=== PATIENT | female | born 1960 | race Caucasian/White ===

== ENCOUNTER 2022-02-04 06:50 | Inpatient (IN) | payer OTHER ==
[~2022-02-04] VITALS: Ht 160 cm; Wt 61.2 kg
[2022-02-04] MEDS ORDERED: SODIUM CHLORIDE 0.9% 1000ML 1,000 ML IV STA ×2 (07:09→08:13)
[2022-02-04] MEDS ORDERED: ONDANSETRON HCL INJ 2MG/ML 2ML 2 MG/ML VIAL IV STA (07:09)
[2022-02-04 07:34] LABS: BASOPHILS # (AUTO) 0.1 (0.0-0.1); BASOPHILS % 0.3 % (0.0-1.0); EOSINOPHILS % 0.1 % (0.0-6.0); HEMATOCRIT 39.3 % (34.2-44.1); LYMPHOCYTES # (AUTO) 1.5 (1.0-3.2); LYMPHOCYTES % 6.8 % (18.0-39.1); MEAN CORPUSCULAR HEMOGLOBIN 28.3 pg (28-32); MEAN CORPUSCULAR HGB CONC 33.1 g/dL (31-35); MEAN CORPUSCULAR VOLUME 85.6 fL (81-99); MONOCYTES # (AUTO) 0.4 (0.2-0.8); MONOCYTES % 1.9 % (4.4-11.3); NEUTROPHILS # (AUTO) 19.7 (2.1-6.9); NEUTROPHILS % 89.7 % (38.7-80.0); PLATELET COUNT 66 x10e3/uL (140-360); RED BLOOD COUNT 4.59 x10e6/uL (3.6-5.1); RED CELL DISTRIBUTION WIDTH 13.6 % (11.7-14.4)
[2022-02-04 07:43] LABS: INR 1.05; PROTHROMBIN TIME 14.7 seconds (11.9-14.5)
[2022-02-04 07:44] LABS: PARTIAL THROMBOPLASTIN TIME 31.4 seconds (23.8-35.5)
[2022-02-04 07:48] LABS: CLARITY,URINE TURBID (CLEAR); COLOR,URINE YELLOW (YELLOW); LEUKOCYTE ESTERASE ,URINE TRACE (NEGATIVE)
[2022-02-04 07:48] LABS: ALBUMIN 2.9 g/dL (3.5-5.0); ALBUMIN/GLOBULIN RATIO 0.8 (0.8-2.0); ANION GAP 20.1 mmol/L (8-16); CALCIUM 8.7 mg/dL (8.4-10.2); CREATININE, SERUM 1.51 mg/dL (0.57-1.11); MAGNESIUM 2.4 MG/DL (1.3-2.1); POTASSIUM 5.1 mmol/L (3.5-5.1)
[2022-02-04 07:49] LABS: BACTERIA,URINE MODERATE /HPF; EPITHELIAL CELLS,URINE MODERATE /LPF; KETONES,URINE TRACE (NEGATIVE); NITRITE,URINE NEGATIVE (NEGATIVE); PROTEIN,URINE DIPSTICK 1+ (NEGATIVE); RBC,URINE 21-50 /HPF (0-5); URINE UROBILINOGEN 1 mg/dL (0.2 - 1); WBC,URINE (MAN) 21-50 /HPF (0-5)
[2022-02-04 07:51] LABS: AMPHETAMINES SCREEN,URINE POSITIVE (NEGATIVE); BENZODIAZEPINES SCREEN,URINE NEGATIVE (NEGATIVE); PHENCYCLIDINE SCREEN,URINE NEGATIVE (NEGATIVE)
[2022-02-04 07:54] LABS: CREATINE KINASE MB 2.8 ng/mL (0-5.0)
[2022-02-04 08:07] LABS: SALICYLATE < 5.0 mg/dL (0-30)
[2022-02-04 10:34] LABS: LYMPHOCYTES % (MANUAL) 4 % (19-48); MONOCYTES % (MANUAL) 5 % (3.4-9.0); NEUTROPHILS % (MANUAL) 91 % (40-74); PLATELET ESTIMATE MODERATELY DECREASED; PLATELET MORPHOLOGY COMMENT NORMAL
[2022-02-04 10:35] LABS: RBC MORPHOLOGY COMMENT NORMAL
[2022-02-04] MEDS ORDERED: ONDANSETRON HCL INJ 2MG/ML 2ML 2 MG/ML VIAL IV PRN (10:45)
[2022-02-04] MEDS: SODIUM CHLORIDE 0.9% 1000ML 1,000 ML IV SCH ×2 (11:15→18:45)
[2022-02-04] MEDS ORDERED: ACETAMINOPHEN 1000 MG/100 ML IV ONE (14:54)
[2022-02-04 14:55] LABS: CREATINE KINASE MB 2.5 ng/mL (0-5.0)
[2022-02-04] MEDS ORDERED: Vancomycin IV 1 GM in SODIUM CHLORIDE 0.9% 250ML 250 ML IV ONE (15:00)
[2022-02-04] MEDS ORDERED: SODIUM CHLORIDE 0.9% 1000ML 1,000 ML ONE (16:25)
[2022-02-04] MEDS: NOREPINEPHRINE 8 MG/D5W 250 ML 250 ML IV SCH (16:30)
[2022-02-04 18:14] LABS: BASOPHILS # (AUTO) 0.1 (0.0-0.1); BASOPHILS % 0.3 % (0.0-1.0); EOSINOPHILS % 0.2 % (0.0-6.0); HEMATOCRIT 32.6 % (34.2-44.1); HEMOGLOBIN 10.6 g/dL (12.0-16.0); LYMPHOCYTES # (AUTO) 1.2 (1.0-3.2); LYMPHOCYTES % 6.3 % (18.0-39.1); MEAN CORPUSCULAR HEMOGLOBIN 28.5 pg (28-32); MEAN CORPUSCULAR HGB CONC 32.5 g/dL (31-35); MEAN CORPUSCULAR VOLUME 87.6 fL (81-99); MONOCYTES # (AUTO) 0.3 (0.2-0.8); MONOCYTES % 1.5 % (4.4-11.3); NEUTROPHILS # (AUTO) 17.2 (2.1-6.9); NEUTROPHILS % 90.7 % (38.7-80.0); PLATELET COUNT 78 x10e3/uL (140-360); RED BLOOD COUNT 3.72 x10e6/uL (3.6-5.1); RED CELL DISTRIBUTION WIDTH 13.7 % (11.7-14.4)
[2022-02-04 18:35] LABS: ALBUMIN 2.3 g/dL (3.5-5.0); ALBUMIN/GLOBULIN RATIO 0.9 (0.8-2.0); CALCIUM 7.3 mg/dL (8.4-10.2); CREATININE, SERUM 1.06 mg/dL (0.57-1.11)
[2022-02-04 18:51] LABS: CREATINE KINASE MB 2.1 ng/mL (0-5.0)
[2022-02-04] MEDS ORDERED: POTASSIUM CHLORIDE 20MEQ/100ML 200 ML IV ONE (19:30)
[2022-02-04] MEDS ORDERED: POTASSIUM CHLORIDE 20MEQ/100ML 200 ML ONE (19:42)
[2022-02-04 21:41] VITALS: BP 127/94
[2022-02-04 21:45] VITALS: BP 131/76
[2022-02-04 22:00] VITALS: BP 129/86
[2022-02-04 22:30] VITALS: BP 127/76
[2022-02-04 23:00] VITALS: BP 123/84
[2022-02-04 23:15] VITALS: BP 119/80
[2022-02-05] VITALS (69 sets, daily range): BP systolic 82–162; BP diastolic 52–141
[2022-02-05] MEDS: LORAZEPAM INJ 2 MG/ML VIAL IV PRN ×2 (00:52→05:50)
[2022-02-05 00:55] LABS: CREATINE KINASE MB 4.5 ng/mL (0-5.0)
[2022-02-05] MEDS: SODIUM CHLORIDE 0.9% 1000ML 1,000 ML IV SCH ×2 (02:45→08:36)
[2022-02-05 06:45] LABS: BASOPHILS # (AUTO) 0.1 (0.0-0.1); BASOPHILS % 0.4 % (0.0-1.0); EOSINOPHILS % 0.2 % (0.0-6.0); HEMATOCRIT 31.3 % (34.2-44.1); HEMOGLOBIN 10.9 g/dL (12.0-16.0); LYMPHOCYTES # (AUTO) 0.8 (1.0-3.2); LYMPHOCYTES % 6.7 % (18.0-39.1); MEAN CORPUSCULAR HEMOGLOBIN 28.6 pg (28-32); MEAN CORPUSCULAR HGB CONC 34.8 g/dL (31-35); MEAN CORPUSCULAR VOLUME 82.2 fL (81-99); MONOCYTES # (AUTO) 0.2 (0.2-0.8); MONOCYTES % 1.6 % (4.4-11.3); NEUTROPHILS % 90.2 % (38.7-80.0); PLATELET COUNT 68 x10e3/uL (140-360); RED BLOOD COUNT 3.81 x10e6/uL (3.6-5.1); RED CELL DISTRIBUTION WIDTH 14.3 % (11.7-14.4)
[2022-02-05 07:19] LABS: ALBUMIN 2.2 g/dL (3.5-5.0); ALBUMIN/GLOBULIN RATIO 0.8 (0.8-2.0); ANION GAP 12.3 mmol/L (8-16); CALCIUM 7.4 mg/dL (8.4-10.2); CREATININE, SERUM 0.81 mg/dL (0.57-1.11); POTASSIUM 3.3 mmol/L (3.5-5.1)
[2022-02-05 09:07] LABS: BAND NEUTROPHILS % (MANUAL) 1 %; LYMPHOCYTES % (MANUAL) 2 % (19-48); NEUTROPHILS % (MANUAL) 97 % (40-74)
[2022-02-05 09:08] LABS: PLATELET ESTIMATE MODERATELY DECREASED; PLATELET MORPHOLOGY COMMENT NORMAL; RBC MORPHOLOGY COMMENT NORMAL
[2022-02-05] MEDS ORDERED: SODIUM BICARBONATE 8.4% 50 ML in SODIUM CHLORIDE 0.45% 1,000 ML IV ONE (09:45)
[2022-02-05] MEDS: POTASSIUM CHLORIDE 20MEQ/100ML 100 ML IV SCH ×2 (10:59→13:01)
[2022-02-05] MEDS ORDERED: SODIUM CHLORIDE 0.45% 1,000 ML ONE (11:11)
[2022-02-05] MEDS: NOREPINEPHRINE 8 MG/D5W 250 ML 250 ML IV SCH (16:30)
[2022-02-06] VITALS (26 sets, daily range): BP systolic 85–103; BP diastolic 55–69
[2022-02-06] MEDS ORDERED: SODIUM BICARBONATE 8.4% SYRING 50 ML ONE (02:00)
[2022-02-06 06:57] LABS: BASOPHILS % 0.3 % (0.0-1.0); HEMATOCRIT 30.3 % (34.2-44.1); HEMOGLOBIN 9.7 g/dL (12.0-16.0); LYMPHOCYTES # (AUTO) 2.4 (1.0-3.2); MEAN CORPUSCULAR VOLUME 87.6 fL (81-99); MONOCYTES # (AUTO) 0.3 (0.2-0.8); MONOCYTES % 2.9 % (4.4-11.3); NEUTROPHILS % 68.9 % (38.7-80.0); PLATELET COUNT 85 x10e3/uL (140-360); RED BLOOD COUNT 3.46 x10e6/uL (3.6-5.1); RED CELL DISTRIBUTION WIDTH 14.7 % (11.7-14.4)
[2022-02-06 07:20] LABS: ALBUMIN/GLOBULIN RATIO 0.8 (0.8-2.0); ANION GAP 10.3 mmol/L (8-16); CALCIUM 7.7 mg/dL (8.4-10.2); CREATININE, SERUM 0.76 mg/dL (0.57-1.11); POTASSIUM 3.3 mmol/L (3.5-5.1)
[2022-02-06] MEDS: POTASSIUM CHLORIDE 20MEQ/100ML 100 ML IV SCH ×2 (08:17→10:55)
[2022-02-06 08:20] LABS: LYMPHOCYTES % (MANUAL) 10 % (19-48); MONOCYTES % (MANUAL) 3 % (3.4-9.0); NEUTROPHILS % (MANUAL) 86 % (40-74)
[2022-02-06 08:21] LABS: PLATELET ESTIMATE MODERATELY DECREASED; PLATELET MORPHOLOGY COMMENT NORMAL; RBC MORPHOLOGY COMMENT NORMAL
[2022-02-06] MEDS ORDERED: SODIUM CHLORIDE 0.9% 250ML 250 ML ONE (08:53)
[2022-02-06] MEDS: MEROPENEM 1 GM in SODIUM CHLORIDE 0.9% 100 ML IV SCH ×2 (13:57→21:20)
[2022-02-06] MEDS: NOREPINEPHRINE 8 MG/D5W 250 ML 250 ML IV SCH (16:30)
[2022-02-07] VITALS (21 sets, daily range): BP systolic 86–115; BP diastolic 55–81
[2022-02-07] MEDS: ACETAMINOPHEN 325 MG TAB PO PRN ×2 (04:01→16:58)
[2022-02-07] MEDS: MEROPENEM 1 GM in SODIUM CHLORIDE 0.9% 100 ML IV SCH ×3 (05:43→22:55)
[2022-02-07 06:49] LABS: BASOPHILS # (AUTO) 0.1 (0.0-0.1); BASOPHILS % 0.5 % (0.0-1.0); EOSINOPHILS # (AUTO) 0.1 (0.0-0.4); EOSINOPHILS % 0.8 % (0.0-6.0); HEMATOCRIT 29.4 % (34.2-44.1); HEMOGLOBIN 9.4 g/dL (12.0-16.0); LYMPHOCYTES # (AUTO) 3.2 (1.0-3.2); LYMPHOCYTES % 32.9 % (18.0-39.1); MEAN CORPUSCULAR HEMOGLOBIN 28.2 pg (28-32); MEAN CORPUSCULAR VOLUME 88.3 fL (81-99); MONOCYTES # (AUTO) 0.3 (0.2-0.8); MONOCYTES % 3.4 % (4.4-11.3); NEUTROPHILS % 61.5 % (38.7-80.0); RED BLOOD COUNT 3.33 x10e6/uL (3.6-5.1); RED CELL DISTRIBUTION WIDTH 14.6 % (11.7-14.4)
[2022-02-07 06:55] LABS: PLATELET COUNT 107 x10e3/uL (140-360)
[2022-02-07 07:00] LABS: ALBUMIN 1.9 g/dL (3.5-5.0); ALBUMIN/GLOBULIN RATIO 0.7 (0.8-2.0); ANION GAP 11.3 mmol/L (8-16); CALCIUM 7.8 mg/dL (8.4-10.2); CREATININE, SERUM 0.67 mg/dL (0.57-1.11); POTASSIUM 3.3 mmol/L (3.5-5.1)
[2022-02-07 08:49] LABS: EOSINOPHILS % (MANUAL) 1 % (0-7); LYMPHOCYTES % (MANUAL) 19 % (19-48); MONOCYTES % (MANUAL) 6 % (3.4-9.0); NEUTROPHILS % (MANUAL) 72 % (40-74); PLATELET ESTIMATE SLIGHTLY DECREASED; PLATELET MORPHOLOGY COMMENT NORMAL; RBC MORPHOLOGY COMMENT NORMAL
[2022-02-07] MEDS: POTASSIUM CHLORIDE 20MEQ/100ML 100 ML IV SCH ×2 (09:01→10:58)
[2022-02-07] MEDS: NOREPINEPHRINE 8 MG/D5W 250 ML 250 ML IV SCH (16:30)
[2022-02-07] MEDS ORDERED: SODIUM CHLORIDE 0.9% 250ML 250 ML ONE (22:46)
[2022-02-08] VITALS (7 sets, daily range): BP systolic 103–126; BP diastolic 64–79
[2022-02-08] MEDS: MEROPENEM 1 GM in SODIUM CHLORIDE 0.9% 100 ML IV SCH ×3 (05:40→23:46)
[2022-02-08 07:30] LABS: BASOPHILS % 0.4 % (0.0-1.0); EOSINOPHILS # (AUTO) 0.1 (0.0-0.4); EOSINOPHILS % 1.1 % (0.0-6.0); HEMATOCRIT 29.3 % (34.2-44.1); HEMOGLOBIN 9.1 g/dL (12.0-16.0); LYMPHOCYTES # (AUTO) 2.9 (1.0-3.2); LYMPHOCYTES % 41.2 % (18.0-39.1); MEAN CORPUSCULAR HEMOGLOBIN 27.6 pg (28-32); MEAN CORPUSCULAR HGB CONC 31.1 g/dL (31-35); MEAN CORPUSCULAR VOLUME 88.8 fL (81-99); MONOCYTES # (AUTO) 0.3 (0.2-0.8); NEUTROPHILS # (AUTO) 3.7 (2.1-6.9); NEUTROPHILS % 52.6 % (38.7-80.0); PLATELET COUNT 141 x10e3/uL (140-360); RED CELL DISTRIBUTION WIDTH 14.7 % (11.7-14.4)
[2022-02-08 07:51] LABS: ALBUMIN 1.9 g/dL (3.5-5.0); ALBUMIN/GLOBULIN RATIO 0.7 (0.8-2.0); ANION GAP 11.8 mmol/L (8-16); CALCIUM 7.8 mg/dL (8.4-10.2); CREATININE, SERUM 0.6 mg/dL (0.57-1.11); POTASSIUM 3.8 mmol/L (3.5-5.1)
[2022-02-08] MEDS: NOREPINEPHRINE 8 MG/D5W 250 ML 250 ML IV SCH (09:52)
[2022-02-08 10:10] LABS: EOSINOPHILS % (MANUAL) 1 % (0-7); LYMPHOCYTES % (MANUAL) 27 % (19-48); MONOCYTES % (MANUAL) 5 % (3.4-9.0); NEUTROPHILS % (MANUAL) 67 % (40-74)
[2022-02-08 10:11] LABS: PLATELET ESTIMATE ADEQUATE; PLATELET MORPHOLOGY COMMENT NORMAL; RBC MORPHOLOGY COMMENT NORMAL
[2022-02-08] MEDS: ACETAMINOPHEN 325 MG TAB PO PRN (16:27)
[2022-02-09] VITALS (7 sets, daily range): BP systolic 111–132; BP diastolic 70–80
[2022-02-09] MEDS: MEROPENEM 1 GM in SODIUM CHLORIDE 0.9% 100 ML IV SCH ×3 (06:34→21:35)
[2022-02-10] MEDS: ACETAMINOPHEN 325 MG TAB PO PRN (00:03)
[2022-02-10 01:05] VITALS: BP 125/79
[2022-02-10 04:33] VITALS: BP 125/77
[2022-02-10] MEDS: MEROPENEM 1 GM in SODIUM CHLORIDE 0.9% 100 ML IV SCH ×2 (06:00→13:11)
[2022-02-10 08:20] VITALS: BP 125/77
[2022-02-10 08:26] VITALS: BP 134/78
[2022-02-10 12:02] VITALS: BP 126/83
== END 2022-02-10 16:27 | disposition home or self-care (01) | DRG 871 ==
LOC: ER 07:04 → ERHOLD 10:38 → ICU 21:26 → OBSVTOIN 02-06 08:42 → MED/SURG2 02-07 21:20
PROVIDERS: ADMIT Family Medicine; ATTEND Family Medicine
PROC: 02HV33Z Insertion of Infusion Device into Superior Vena Cava, Percutaneous Approach (ICD-10-PCS; principal; 2022-02-04)
PROC: 3E043XZ Introduction of Vasopressor into Central Vein, Percutaneous Approach (ICD-10-PCS; principal; 2022-02-04)
PROC: 3E04329 Introduction of Other Anti-infective into Central Vein, Percutaneous Approach (ICD-10-PCS; principal; 2022-02-04)
PROC: 0T9B70Z Drainage of Bladder with Drainage Device, Via Natural or Artificial Opening (ICD-10-PCS; principal; 2022-02-04)
DX: A41.9 Sepsis, unspecified organism (principal); G92.8 Other toxic encephalopathy; R65.21 Severe sepsis with septic shock; N39.0 Urinary tract infection, site not specified; E87.1 Hypo-osmolality and hyponatremia; N17.9 Acute kidney failure, unspecified; E87.20 Acidosis, unspecified; Z16.12 Extended spectrum beta lactamase (ESBL) resistance; D69.6 Thrombocytopenia, unspecified; I50.9 Heart failure, unspecified; I11.0 Hypertensive heart disease with heart failure; E86.0 Dehydration; R19.7 Diarrhea, unspecified; F15.10 Other stimulant abuse, uncomplicated; F12.10 Cannabis abuse, uncomplicated; E87.6 Hypokalemia; F31.9 Bipolar disorder, unspecified; B96.20 Unspecified Escherichia coli [E. coli] as the cause of diseases classified elsewhere; F17.200 Nicotine dependence, unspecified, uncomplicated; Z90.710 Acquired absence of both cervix and uterus; Z88.8 Allergy status to other drugs, medicaments and biological substances; Z85.42 Personal history of malignant neoplasm of other parts of uterus; Z20.822 Contact with and (suspected) exposure to COVID-19
CPT/HCPCS: 36415; 36555; 51700; 70450; 71045; 74176; 80053; 80307; 80320; 80329; 81001; 82140; 82550; 82553; 82948; 83605; 83735; 84484; 85025; 85610; 85730; 87040; 87086; 87186; 93005; 93971; 99251; 99285; G0378; J0456; J0696; J2060; J2185; J2405; J3370; J3480; J7030; J7050

== ENCOUNTER 2024-09-06 00:26 | Emergency (ER) | payer OTHER ==
[~2024-09-06] VITALS: Ht 160 cm; Wt 61.2 kg
[2024-09-06 00:36] VITALS: RESP 18; TEMP 98.1
[2024-09-06 01:00] VITALS: PULSE 70
[2024-09-06 01:41] LABS: CORONAVIRUS COVID-19 AG NEGATIVE (NEGATIVE); INFLUENZA A AG NEGATIVE (NEGATIVE); INFLUENZA B AG NEGATIVE (NEGATIVE)
[2024-09-06] MEDS ORDERED: MEDROL4 M2 PO (01:46)
[2024-09-06] MEDS ORDERED: AZITHROMYCIN250 MG PO (01:46)
[2024-09-06 01:57] VITALS: BP 138/99; O2SAT 98
== END 2024-09-06 01:48 | disposition home or self-care (01) ==
LOC: ER 00:34
DX: R06.02 Shortness of breath (principal); J40 Bronchitis, not specified as acute or chronic; R05.9 Cough, unspecified; R51.9 Headache, unspecified; I10 Essential (primary) hypertension; I50.9 Heart failure, unspecified; F31.9 Bipolar disorder, unspecified; Z85.89 Personal history of malignant neoplasm of other organs and systems; F17.210 Nicotine dependence, cigarettes, uncomplicated
CPT/HCPCS: 71045; 99283